=== PATIENT | female | born 1980 | race Caucasian/White ===

== ENCOUNTER 2016-08-25 06:00 | Day surgery (SDC) | payer BC, OTHER ==
[~2016-08-25] VITALS: Ht 165.1 cm; Wt 76.1 kg
[2016-08-25] MEDS ORDERED: LR 1,000 ML IV SCH ×2 (06:30→10:00)
[2016-08-25 06:37] LABS: MEAN CORPUSCULAR HEMOGLOBIN 31.2 pg (27.0-33.0); MEAN CORPUSCULAR HGB CONC 35.2 g/dl (32.0-36.5); MEAN CORPUSCULAR VOLUME 88.8 fl (80.0-96.0); RED CELL DISTRIBUTION WIDTH 12.7 % (11.5-14.5)
[2016-08-25 06:40] LABS: CONTROL LINE UCG INT CTR LINE PRESENT
[2016-08-25] MEDS ORDERED: SCOPOLAMINE 1.5 MG TRANSDERMAL TOP ONE (07:30)
[2016-08-25] MEDS ORDERED: dexameTHASONE 4 MG/ML 1ML VIAL (J1100) As Ordered ONE (08:07)
[2016-08-25] MEDS ORDERED: PROPOFOL 200 MG/20 ML VIAL As Ordered ONE ×2 (08:07→09:03)
[2016-08-25] MEDS ORDERED: HYDROmorphone HCL 2 MG/ML 1ML VIAL (J1170) As Ordered ONE (08:07)
[2016-08-25] MEDS ORDERED: MIDAZOLAM INJ 2 MG/2 ML VIAL (J2250) As Ordered ONE (08:07)
[2016-08-25] MEDS ORDERED: GLYCOPYRROLATE INJ 0.2 MG/ML 2 ML VIAL As Ordered ONE (08:07)
[2016-08-25] MEDS ORDERED: NEOSTIGMINE 1MG/ML 5 ML SYRINGE (J2710) As Ordered ONE (08:07)
[2016-08-25] MEDS ORDERED: ONDANSETRON 4MG/2ML VIAL (J2405) As Ordered ONE (08:07)
[2016-08-25] MEDS ORDERED: KETOROLAC 60 MG/2 ML VIAL (J1885) As Ordered ONE (08:07)
[2016-08-25] MEDS ORDERED: ROCURONIUM BROMIDE 50 MG/5 ML VIAL As Ordered ONE (08:07)
[2016-08-25] MEDS ORDERED: LIDOCAINE 2% INJ 100 MG/5 ML SDV (FOR ANES.) As Ordered ONE (08:07)
[2016-08-25] MEDS ORDERED: fentaNYL 250 MCG/5 ML INJECTION (J3010) As Ordered ONE (08:07)
[2016-08-25] MEDS ORDERED: ePHEDrine SULFATE 25 MG/5 ML(5MG/ML) SYRINGE As Ordered ONE (08:22)
[2016-08-25] MEDS ORDERED: MORPHINE PCA 1MG/ML 100ML CADD As Ordered ONE (09:23)
[2016-08-25] MEDS: LR 1,000 ML IV SCH ×2 (09:25→14:40)
[2016-08-25] MEDS ORDERED: MORPHINE PCA 1MG/ML 100ML CADD IV PRN (10:00)
[2016-08-25] MEDS ORDERED: NALBUPHINE HCL 10 MG/ML AMP (J2300) IV PRN (10:00)
[2016-08-25] MEDS ORDERED: MORPHINE 2 MG/ML 1ML SYRINGE IV PRN (10:00)
[2016-08-25] MEDS ORDERED: diphenhydrAMINE INJ 50MG/ML VIAL (J1200) IV PRN (10:00)
[2016-08-25] MEDS ORDERED: fentaNYL 100 MCG/2 ML INJECTION (J3010) IV PRN (10:00)
[2016-08-25] MEDS ORDERED: EPIDURAL/PCA KEYS XX PRN (10:00)
[2016-08-25] MEDS ORDERED: ONDANSETRON 4MG/2ML VIAL (J2405) IV PRN (10:00)
[2016-08-25] MEDS ORDERED: NALOXONE INJ 0.4 MG/1 ML VIAL (J2310) IV PRN (10:00)
[2016-08-25] MEDS ORDERED: IBUPROFEN 600 MG TAB PO PRN (10:00)
--- NOTE | 2016-08-25 10:11 | RO ---
DATE OF PROCEDURE: 08/25/2016 PREOPERATIVE DIAGNOSES/INDICATION FOR SURGERY: Dysmenorrhea and menorrhagia. POSTOPERATIVE DIAGNOSES: Dysmenorrhea and menorrhagia. PROCEDURE: Total vaginal hysterectomy with bilateral salpingectomy. The patient retains her ovaries. SURGEON: Kim Pardo MD [employer]OR DEPOSITING MACHINE TENDER: Jeana Church NP ANESTHESIA: General endotracheal anesthesia. BRIEF DESCRIPTION OF PROCEDURE AND FINDINGS: Sofi was brought to the operating room where sufficient general endotracheal anesthesia was induced. She was prepped, draped and positioned in the usual sterile fashion with the bladder emptied with a metal catheter and then the anterior and posterior aspect of the cervix grasped with single-tooth tenacula and a weighted speculum was of course in place, then a curved [place] anteriorly and then a circumferential incision was made around the base of the cervix using a scalpel. The cardinal ligaments were isolated, clamped, transected and ligated. The uterosacral ligaments were then isolated, clamped, transected and ligated, and noted for later re-securing to the cuff. The peritoneum was then entered posteriorly and anteriorly and the uterine vasculature carefully clamped, transected and ligated in sequential fashion along the lateral aspect of the uterus until the pedicle to the ovaries was reached. This too was clamped, transected and ligated. Both ovaries were readily visible and palpable, and of course left in place as was planned in this 36-year-old woman. The pedicles to the tubes were then carefully dissected out and on the right side this was fairly readily accomplished. On the left side, a small portion of the tube was adherent to the ovary on the ovarian vasculature and so this few millimeter section portion of the tube there was still adherent to the ovary, but the rest of the tube was removed. We had both fimbria and watched the ovaries. There did not appear to be any disruption to the ovarian vasculature and there was no significant bleeding. Angle stitches of #0 Vicryl were taken in the cuff and the cuff was closed in the usual fashion with two portions of the suture and of course incorporating the uterosacrals in this young woman. Good approximation and hemostasis was achieved with this closure and the procedure was then ended. Feliciano placed postoperatively. Estimated blood loss for the procedure about 50 mL. Fluid replacement was crystalloid. Complications: None. Condition and Disposition: Sofi tolerated the procedure well and was recovering in the recovery room in good condition.
[2016-08-25 13:45] VITALS: BP 132/92
[2016-08-25 18:00] VITALS: BP 114/75
[2016-08-25 21:00] VITALS: BP 126/82
[2016-08-25 22:20] VITALS: BP 132/89
[2016-08-26] MEDS: LR 1,000 ML IV SCH (01:38)
[2016-08-26 04:00] VITALS: BP 139/75
[2016-08-26] MEDS: NORCO, ANEXSIA 5/325MG TABLET (HYDROcodone/ACETAMINOPHEN) PO PRN ×2 (06:14→10:42)
[2016-08-26 06:29] LABS: MEAN CORPUSCULAR HGB CONC 35.5 g/dl (32.0-36.5); MEAN CORPUSCULAR VOLUME 87.3 fl (80.0-96.0); RED CELL DISTRIBUTION WIDTH 12.6 % (11.5-14.5); WHITE BLOOD COUNT 14.6 K/mm3 (4.0-10.0)
[2016-08-26 08:00] VITALS: BP 128/83
[2016-08-26] MEDS ORDERED: LORT5TAB PO (10:37)
[2016-08-26] MEDS ORDERED: MOTR200T40 PO (10:37)
== END 2016-08-26 10:55 | disposition home or self-care (01) ==
LOC: M SDC 06:00 → M MSPAV 13:35 → M PED 22:19 → M SDC 08-26 10:55
PROVIDERS: ATTEND Obstetrics & Gynecology
DX: N92.0 Excessive and frequent menstruation with regular cycle (principal); N94.6 Dysmenorrhea, unspecified; N72 Inflammatory disease of cervix uteri; N83.8 Other noninflammatory disorders of ovary, fallopian tube and broad ligament
CPT/HCPCS: 36415; 58262; 84703; 85027; 86850; 86900; 86901; 88309; 96374; 96375; J0690; J1100; J1170; J1885; J2250; J2405; J2710; J3010

== ENCOUNTER → 2019-07-02 | Outpatient (REF) | payer BC, OTHER ==
[~2019-07-02] MED LIST: LORT5TAB PO; MOTR200T44 PO
[2019-07-02 13:59] LABS: PERCENT SATURATION 50.2 % (13.2-45.0)
== END ==
LOC: M LAB REF 12:40
PROVIDERS: ATTEND Registered Nurse
DX: L65.9 Nonscarring hair loss, unspecified (principal)

== ENCOUNTER → 2019-09-07 | Outpatient (REF) | payer BC | LOC: M LAB REF 18:20 | PROVIDERS: ATTEND Physician Assistant | DX: J02.9 Acute pharyngitis, unspecified (principal) ==

== ENCOUNTER → 2020-09-18 | Outpatient (CLI) | payer BC ==
--- NOTE | 2020-09-19 04:28 | REP ---
INDICATION: RT FLANK PAIN COMPARISON: None TECHNIQUE: Real time hand scale ultrasound examination using curved array transducer. FINDINGS: Bilateral kidneys are normal in contour, size, echogenicity, and reniform shape. No hydronephrosis, nephrolithiasis, cystic or renal mass lesion. No perinephric fluid collection. Bladder is normal in appearance and demonstrates bilateral ureteral jets. Right kidney measures 11.7 x 5.2 x 3.7 cm. Left kidney measures 11.7 x 5.5 x 5.0 cm. IMPRESSION: 1. Normal renal ultrasound. <Electronically signed by Dmitry Perez > 09/19/20 [id number]
--- NOTE | 2020-09-19 04:32 | REP ---
INDICATION: RT FLANK PAIN COMPARISON: None. TECHNIQUE: Transabdominal pelvic ultrasound followed by transvaginal examination for better evaluation of the adnexa with color Doppler evaluation of the ovaries. FINDINGS: Bladder is unremarkable and measures 10.5 x 9.4 x 9.0 cm. Patient is status post hysterectomy without pelvic fluid or adnexal mass lesion. Left ovary is not visualized. Right ovary measures 2.8 x 2.1 x 3.7 cm (RI 0.46) and includes 2.1 cm simple cyst and 2.1 cm complex likely involuting hemorrhagic cyst. No pelvic fluid or adnexal mass lesion. IMPRESSION: Status post hysterectomy. Simple and complex cyst in the right ovary. Findings likely represent dominant follicle and involuting hemorrhagic cyst. <Electronically signed by Dmitry Perez > 09/19/20 042
== END ==
LOC: M RAD 14:31
PROVIDERS: ATTEND Physician Assistant Medical
DX: N83.201 Unspecified ovarian cyst, right side (principal); Z90.710 Acquired absence of both cervix and uterus; R10.31 Right lower quadrant pain

== ENCOUNTER → 2020-11-27 | Outpatient (CLI) | payer BC ==
--- NOTE | 2020-11-27 09:48 | REP ---
INDICATION: PELVIC AND PERINEAL PAIN COMPARISON: 09/18/2020 TECHNIQUE: Transabdominal pelvic ultrasound followed by transvaginal examination for better evaluation of the endometrium and adnexa with color Doppler evaluation of the ovaries. FINDINGS: Bladder is unremarkable and measures 10.4 x 9.6 x 6.9 cm. Patient is noted to be status post hysterectomy. No pelvic fluid or mass lesion appreciated. Left ovary is not visualized. Right ovary measures 2.3 x 1.9 x 3.0 cm (RI 0.54) and includes 2.0 x 1.2 x 1.6 cm complex hyperechoic structure which is essentially unchanged from prior examination. IMPRESSION: 1. Evidence for prior hysterectomy. Left ovary not visualized and possibly removed. 2. Vague hyperechoic structure in the right ovary similar to prior examination. Finding is otherwise nonspecific and may represent residual involuted cyst. <Electronically signed by Dmitry Perez > 11/27/20 0952
== END ==
LOC: M RAD 08:37
PROVIDERS: ATTEND Obstetrics & Gynecology
DX: R10.2 Pelvic and perineal pain (principal); Z98.890 Other specified postprocedural states

== ENCOUNTER → 2023-10-20 | Outpatient (CLI) | payer BC, OTHER | LOC: M RAD 12:41 | PROVIDERS: ATTEND Internal Medicine | DX: R07.81 Pleurodynia (principal) ==

== ENCOUNTER → 2025-04-01 | Outpatient (REF) | payer OTHER ==
[2025-04-01 19:42] LABS: LUTEINIZING HORMONE 23.9 mIU/ML; PROGESTERONE 0.49 NG/ML
== END ==
LOC: M LAB REF 17:48
PROVIDERS: ATTEND Family Medicine
DX: N95.1 Menopausal and female climacteric states (principal)